=== PATIENT | male | born 1985 | race Caucasian/White ===

== ENCOUNTER 2022-05-10 01:29 | Day surgery (SDC) | payer OTHER, SELFPAY ==
--- NOTE | 2022-05-05 15:06 | PC.NURSE ---
Report to the Outpatient Waiting Room, entrance under the green pavilion located off [facility], at time _1130 on date _05/10/22 . OR Time: __1330 . - You and your visitor will be asked a series of questions to screen for COVID 19 for your protection. - Only one visitor is allowed at this time. - The patient visitor is requested to leave or wait in car when not with patient. - A mask is required within the hospital. Patients may have clear liquids (water, carbonated beverages, clear teas, apple juice) until 3 hours prior to surgery with a maximum of 20 ounces. - No food from midnight until time of surgery - Infants may have breast milk until 4 hours before surgery, infant formula 6 hours prior to surgery. - Children will be allowed to drink immediately following surgery. If applicable, please bring a bottle or sippy cup to assist with drinking. Juice, water, soda, and popsicles are readily available. For infants on formula, please bring formula the day of surgery. Pacifiers are allowed. Take the following medications with a SIP of water the morning of surgery: NONE Medications to discontinue per physician NONE Date to take last dose Please no make-up, nail hungarian, hairspray, perfume, deodorant, or body powder the day of surgery. No jewelry (including any body piercings) or valuables the day of surgery, leave them at home. Please take a shower or bath the night before, or the morning of, surgery with an antibacterial soap. Wear comfortable, loose fitting clothing. Children are encouraged to wear pajamas. - Jewelry must be removed prior to entering the operating room. Rings and piercings that are not removed may be cut off. - The hospital will not accept responsibility for valuables. - Please leave all valuables, including medications, at home the day of surgery. If you are going home after surgery, a licensed driver messenger must drive you home. - NO public transportation without another adult. - We recommend that an adult stay with you for 24 hours following discharge. - We also recommend that you do not drive, make important decision, drink alcoholic beverages, or take any drugs that were not prescribed by your health care provider for at least 24 hours after your discharge time. For Pediatric surgeries, we recommend two adults accompany the child home (only one inside the building at this time). Follow any additional instructions given to you from your surgeon. If you or anyone in your household have experienced Covid symptoms in the past week, please notify your surgeon or the nurse liaison at the phone number below for possible testing. Telephone instructions given to ___PATIENT and asked if any additional questions and then verbalized understanding. Patient advised to call surgeon office or pre surgery nurse liaison [phone] if any additional questions.
[2022-05-05 15:07] VITALS: BMI 30.1
--- NOTE | 2022-05-10 11:28 | WPDHPUPDATE1 ---
History and Physical Update Update Date/Time: 05/10/22 11:28 History and Physical has been reviewed, including an updated exam of the patient. There are NO changes in the patient's condition. Risks, benefits, and alternatives have been discussed and questions answered. Patient agrees to proceed with procedure.
[2022-05-10 11:57] VITALS: BP 122/78; PULSE 76; RESP 16; TEMP 36.5; O2SAT 100
[2022-05-10] MEDS: LACTATED RINGERS 1,000 ML 30 ML IV CONT (12:30)
--- NOTE | 2022-05-10 12:34 | WPDANESEPPF ---
Anes - Initial Pre Proc Eval Procedure: Operation Date: 05/10/22 13:30 Proposed Procedures p Incision and Drainage Complex Pilonidal Cyst - Gino Rankin MD Date/Time: 05/10/22 12:34 Surgeon: Gino Rankin MD Pre Op Diagnosis: Pilonidal Cyst Patient Data Age: 36 Gender: M Height: 1.75 m Weight: 91.9 kg Last Vital Signs Temp 36.5 C 05/10/22 11:57 Pulse 76 05/10/22 11:57 Resp 16 05/10/22 11:57 BP 122/78 05/10/22 11:57 Pulse Ox 100 05/10/22 11:57 O2 Del Method Room Air 05/10/22 11:57 Allergies Allergy/AdvReac Type Severity Reaction Status Date / Time No Known Allergies Allergy Verified 05/10/22 11:59 Home Medications Medication Instructions Recorded Confirmed Type No Home Medications 04/04/22 05/10/22 History Patient hx anesthesia problems: none Family hx anesthesia problems: none Results Review: All pre-operative results and documents have been reviewed as part of the pre-operative evaluation. [facility] Surgical History Surgical History History of incision and drainage pilonidal cyst 03/06/22 [place]apleton's Status post incision and drainage 04/28/22 Social History Social History Smoking packs per day: 0.5 Smoking cigarettes per day: 10.0 Years smoked: 10 Smoking pack-years: 5.00 Smoking status: Current every day smoker Tobacco type: cigarettes Alcohol intake: current Drinks per week: 10 Alcohol use details: Social alcohol use Living arrangements: with friend(s) Additional occupation/education comments: repossession agent Spiritual care concerns: No Anes - Eval Final PreProcedure Day of Procedure 05/10/22 12:34 Patient weight: overweight Heart: regular rate and rhythm Lungs: clear to auscultation Airway: Mallampati scale class III Neurological: alert and oriented Last oral intake: >/= 8 hours ASA classification: II Emergent: no Anesthetic plan: proceed Anesthesia type and monitoring: general ETT and standard monitoring Results Review: All pre-operative results and documents have been reviewed as part of the pre-operative evaluation. Informed Consent: The patient's anesthetic plan and its attendant risks and benefits were discussed with the patient/family/POA. Questions were solicited and answers provided to the satisfaction of the patient/family/POA.
[2022-05-10] MEDS: ceFAZolin 2 GM/D5W 50 ML 2 GM/50 ML BAG IVPB (12:57)
[2022-05-10] MEDS: LIDO 1%/EPINEPHRINE/PF 1:200,000 30 ML VIAL XX (13:03)
[2022-05-10 13:45] VITALS: BP 123/71; PULSE 106; RESP 12; TEMP 36.6; O2SAT 95
[2022-05-10 14:00] VITALS: BP 106/75; PULSE 77; RESP 20; O2SAT 96
[2022-05-10 14:15] VITALS: BP 113/81; PULSE 75; RESP 20; O2SAT 99
[2022-05-10 14:19] VITALS: BP 130/74; PULSE 68; RESP 18
--- NOTE | 2022-05-10 14:21 | P.OP_ITS ---
Procedure Note - Detailed Date of Procedure 05/10/22 Pre-op Diagnosis Pilonidal Cyst Post-op Diagnosis Same Procedure Performed Incision and drainage complicated pilonidal cyst Surgeon Gino Rankin MD Outreach Librarian Emelina Patel [facility] Anesthesia General and Local (1% lidocaine with epinephrine) Indications Patient has a very longstanding history of recurrent pilonidal cyst. I explored this under local in the office and it is extensive. He is taken to surgery now for incision and drainage of complicated pilonidal cyst. Findings The track for the pilonidal cyst extended for 5-1/2 cm. There was abundant chronic inflammatory tissue in the wound track. The tract itself was very well defined. There was very little hair in the tract. Description of Procedure The patient was taken to surgery and induced into general anesthesia. He was then turned to a prone position. The buttocks were taped apart. Prep and drape including meticulous shaving of all the hair in the area of the sacrum and coccyx was carried out. I used the blunt curved clamp and reopened the area where I had explored in the office which was the uppermost aspect of the pilonidal cyst. There was some purulent-appearing fluid in the area. I then passed a lacrimal duct probe into the tract. It passed easily to a cleft closer to the coccyx. With the probe in place, I infiltrated local throughout the skin and subcutaneous of the tissue overlying the tract. I also infiltrated local deep to the tract. I then sharply opened the tract down to the pilonidal cyst sinus tract itself. The tract actually extended about another 4-5 mm caudally and I unroof to that area as well. This came to the end of the well formed sinus tract. There was a lot of chronic inflammatory tissue in the tract. I tried curetting this out but it was very adherent. I sharply excised this tissue. I then curetted the tract itself. I placed more local in the wound throughout the area. I then used the cautery to achieve good hemostasis. The wound was dressed with Xeroform gauze fluffs and Medipore tape. The patient was returned to a supine position, awakened extubated and taken to recovery in good condition. Sponge and needle counts were correct x2. Estimated Blood Loss -5 Drains No Packing Yes (Xeroform gauze) Pathology None sent Complications No immediate complications Condition Stable Disposition PACU [facility] Billing Surgery - Charge Forward: Surgery Billing (Incision and drainage complicated pilonidal cyst)
[2022-05-10 14:45] VITALS: BP 112/72; PULSE 71
== END 2022-05-10 14:58 | disposition home or self-care (01) ==
PROVIDERS: PCP Family Medicine; Visit Provider Surgery
PROC: (CPT 10081; principal; 2022-05-10 13:30)
DX: L05.91 Pilonidal cyst without abscess (principal); F17.210 Nicotine dependence, cigarettes, uncomplicated
CPT/HCPCS: 10081; A9270; J0330; J0690; J1100; J2250; J2405; J2704; J3010; J7120; Q9968

== ENCOUNTER 2025-07-22 02:07 | Day surgery (SDC) | payer OTHER, SELFPAY ==
[2025-07-16 08:50] VITALS: BMI 29.1
--- NOTE | 2025-07-16 08:57 | PC.NURSE ---
Report to the Outpatient Waiting Room, entrance under the green pavilion located off [facility], at time _0900_ on date _[phone]_. Planned Procedure Time: _1000_.? Time changes happen often and if your time is changed the preop area will call you the afternoon before. - You and your visitor will be asked to self-screen and do not enter if you have any COVID symptoms. Please call surgeon if you need to reschedule. - A mask is optional within the hospital at this time. Patients may have clear liquids (water, carbonated beverages, clear teas, apple juice) until 3 hours prior to surgery with a maximum of 20 ounces. - No food from midnight until time of surgery and no smoking, or chewing tobacco (or any form of nicotine). No chewing gum, candy or mints. Take only the following medications with a SIP of water on the morning of surgery: __None____ DO NOT STOP ANY OF YOUR OTHER PRESCRIPTION MEDICATIONS PRIOR TO SURGERY EXCEPT THE FOLLOWING Hold all vitamins and supplements for 3 days per anesthesiologist. Medications to discontinue per physician Date to take last dose Please no make-up, nail syriac, hairspray, perfume, deodorant, or body powder the day of surgery.? No jewelry (including any body piercings) or valuables the day of surgery, leave them at home.? Please take a shower or bath the night before, or the morning of, surgery with an antibacterial soap.? Wear comfortable, loose fitting clothing.? - Jewelry must be removed prior to entering the operating room.? Rings and piercings that are not removed may be cut off. - The hospital will not accept responsibility for valuables.? - Please leave all valuables, including medications, at home the day of surgery. If you are going home after surgery, a licensed otr hazmat company driver must drive you home.? - NO public transportation without another adult if you receive anesthesia. - We recommend that an adult stay with you for 24 hours following discharge. - We also recommend that you do not drive, make important decision, drink alcoholic beverages, or take any drugs that were not prescribed by your health care provider for at least 24 hours after your discharge time. Follow any additional instructions given to you from your surgeon. Telephone instructions given to ___Nathan__and asked if any additional questions and then verbalized understanding. Patient advised to call surgeon office or pre surgery nurse liaison [phone] if any additional questions.
--- OUTSIDE RECORDS SUMMARY | 2025-07-22 02:20 | XMS_ITS | Clinical Summary ---
Author Organization [facility] Address [address] [place] [address] Phone Care Team Providers Care Client Technical Professional Name Role Phone Provider, None Primary Care Provider Unavailabl e Allergies No known active allergies Medications No known medications Social History Tobacco Use Types Packs/Day Years Used Date Smoking Tobacco: Every Day Alcohol Use Standard Drinks/Week Comments Never 0 (1 standard drink = 0.6 oz pur e alcohol) Sex and Gender Information Value Date Recorded Sex Assigned at Not on file Legal Sex Male 12:22 PM CDT Gender Identity Not on file Sexual Orientation Not on file Last Filed Vital Signs Vital Sign Reading Time Taken Comments Blood Pressure 129/58 03/13/2022 1:46 PM CDT Pulse 100 03/13/2022 1:46 PM CDT Temperature 36.3 C (97.3 F) 03/13/2022 12:31 PM CDT Respiratory Rate 18 03/13/2022 1:46 PM CDT Oxygen Saturation 95% 03/13/2022 1:46 PM CDT Inhaled Oxygen Concentration - - Weight 95.3 kg (210 lb) 03/13/2022 12:31 PM CDT Height 175.3 cm (5' 9) 03/13/2022 12:31 PM CDT Body Mass Index 31.01 03/13/2022 12:31 PM CDT Plan of Treatment Not on file Insurance [employer] Care Teams Client Technical Professional Relationship Specialty Start Date End Date Provider, None [place] PCP - General 03/13/22
--- OUTSIDE RECORDS SUMMARY | 2025-07-22 02:20 | XMS_ITS | Clinical Summary ---
Author Organization [facility] [address] [place] Address [address] [place] [id number] Care Team Providers Care Rate Setter Name Role Phone Unknown, Notinfile Primary Care Provider Unavail able Allergies No known active allergies Medications tamsulosin (FLOMAX) 0.4 mg extended release capsule Take 1 capsule (0.4 mg total) by mouth daily for 7 days 7 capsule 08/13/2024 Active Active Problems No known active problems Social History Tobacco Use Types Packs/Day Years Used Date Smoking Tobacco: Never Assessed Personal Safety Answer Date Recorded Getting School Help Needed Not on file 04/19 Sex and Gender Information Value Date Recorded Sex Assigned at Not on file 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 Gender Identity Not on file Sexual Orientation Not on file Last Filed Vital Signs Vital Sign Reading Time Taken Comments Blood Pressure 127/85 08/13/2024 10:27 AM CDT Pulse 94 08/13/2024 10:27 AM CDT Temperature 36.2 C (97.2 F) 08/13/2024 10:27 AM CDT Respiratory Rate 14 08/13/2024 10:27 AM CDT Oxygen Saturation 99% 08/13/2024 10:27 AM CDT Inhaled Oxygen Concentration - - Weight 98.4 kg (217 lb) 08/13/2024 10:27 AM CDT Height 175.3 cm (5' 9) 08/13/2024 10:27 AM CDT Body Mass Index 32.05 08/13/2024 10:27 AM CDT Plan of Treatment Health Maintenance Due Date Last Done Comments Depression Screening 1985 Hepatitis C Screening 1985 DTaP/Tdap/Td Vaccine (1 - Tdap) 1997 Varicella Vaccines (1 of 2 - 13+ 2-dose series) 1999 Hepatitis B Screening 2004 Regular Well Visit/Exam 18-64 2004 HPV Vaccines (1 - 3-dose SCD M series) 2013 Influenza Vaccine (#1) 2025 Pneumococcal vaccine <65 Aged Out No longer eligible based on patient's age to complete this topic Insurance [employer]ible OPEN ACCESS Care Teams Rate Setter Relationship Specialty Start Date End Date Unknown, Notinfile PCP - General 04/20/24
--- NOTE | 2025-07-22 08:43 | WPDHPUPDATE1 ---
History and Physical Update Update Date/Time: 07/22/25 08:43 History and Physical has been reviewed, including an updated exam of the patient. There are NO changes in the patient's condition. Risks, benefits, and alternatives have been discussed and questions answered. Patient agrees to proceed with procedure.
[2025-07-22 09:26] VITALS: BP 131/93; PULSE 106; RESP 18; TEMP 36.6; O2SAT 98; BMI 29.0
[2025-07-22 10:00] VITALS: BP 144/95; PULSE 83; RESP 18; O2SAT 98
[2025-07-22 10:05] VITALS: BP 139/90; PULSE 90; RESP 18; O2SAT 99
[2025-07-22] MEDS: BUPIVACAINE/EPINEPHRINE 0.5% 50 ML VIAL 20 ML INFILTRATE (10:09)
[2025-07-22 10:10] VITALS: BP 144/95; PULSE 92; RESP 18; O2SAT 97
--- NOTE | 2025-07-22 10:10 | S_PTH ---
PATIENT: Rickey Rosenthal LOC: [facility] U#:[id number] AGE/SX: 39/M ROOM: RE07/22/[address]: Gino Rankin MD : 1985 BED: DIS: 07/22/2025 SPEC #: [id number] RECD: 07/22/25 10:48 STATUS: GERSON REJavy #: [id number] IVETH: 07/22/25 10:[address]: Gino Rankin DEPT: [facility] Surgical RECD BY: Alka Carrillo ENTERED: 07/22/25 10:48 SP TYPE: Surgical OTHR DR: UNKNOWN,DOCTOR Tissues: A - Cyst Procedures: Hematoxylin and Eosin Stain Gross and Microscopic Level 4
[2025-07-22 10:20] VITALS: BP 135/89; PULSE 91; RESP 18; O2SAT 98
--- NOTE | 2025-07-22 10:23 | P.OP_ITS ---
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 He is taken to surgery now for excision. Findings The cyst had gotten smaller from the time of his office visit and now was only 1.2 cm in diameter. Description of Procedure Patient was taken to the operating room after the cyst and the planned excision had been marked on the skin in the preop area. He was placed in a prone position with the neck in neutral to slightly flexed position. Prep and drape was carried out. Local was infiltrated in the ellipse around the cyst. Incision was made and the ellipse with the cyst and some subcutaneous tissue was excised. Additional local was infiltrated. Cautery was used for hemostasis. Wound was closed in layers with a deep layer of interrupted 4-0 Vicryl suture. Some subcuticular 4-0 Vicryl skin stitches were placed. Finally a running 4-0 Monocryl skin stitch was placed. The wound was dressed with Exofin surgical adhesive. Patient was awake through the procedure and tolerated it well. Sponge and needle counts were correct x2. Estimated Blood Loss -10 Drains No Packing No Pathology Yes (Skin cyst posterior neck) Complications None Condition Stable Disposition Same day [facility] Billing Surgery - Charge Forward: Surgery Billing (Excision skin cyst posterior neck 1.2 cm, with no margin; 5 cm layered closure)
[2025-07-22 10:29] VITALS: BP 137/83; PULSE 81; RESP 20
== END 2025-07-22 10:43 | disposition home or self-care (01) ==
PROVIDERS: Visit Provider Surgery
PROC: (CPT 11422; principal; 2025-07-22 10:00)
DX: L72.0 Epidermal cyst (principal)
CPT/HCPCS: 11422; 12042; 88305